=== PATIENT | female | born 1960 | race Caucasian/White ===

== ENCOUNTER 2025-02-11 14:39 | Emergency (ER) | payer MEDICAID, SELFPAY ==
[2025-02-11 14:40] VITALS: BMI 38.7
[2025-02-11 14:53] VITALS: BP 153/97; PULSE 82; RESP 20; TEMP 36.7; O2SAT 95
--- NOTE | 2025-02-11 14:55 | XR_ITS ---
Examination: Forearm, right, 2 views. Technique: Forearm, AP, lateral 2 views Date and time of exam: February 11, 2025, 1407 hours INDICATIONS: Injury to the arm today FINDINGS: No acute fracture No dislocation No elbow effusion IMPRESSION: No acute fracture
--- NOTE | 2025-02-11 14:57 | XR_ITS ---
EXAMINATION: PA lateral chest 2 views TECHNIQUE: Upright PA lateral chest 2 views Date and time: February 11, 2025, 1509 hours, comparison June 11, 2023 INDICATIONS: Chest pain beginning 2 weeks ago. FINDINGS: Normal heart size No lobar pneumonia or pulmonary edema The osseous structures are intact IMPRESSION: No pneumonia or pulmonary edema
--- NOTE | 2025-02-11 14:59 | EKG_ITS ---
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[id number] Requested By: Jordan Rice Order Number: [id number] Reading MD: Jordan Rice Measurements Intervals [place] Rate: 79 P: 37 OK: 144 QRS: -46 QRSD: 112 T: 9 QT: 370 QTc: 425 Interpretive Statements SINUS RHYTHM POSSIBLE LEFT ATRIAL ENLARGEMENT [-0.1mV P-WAVE IN V1/V2] LEFT ANTERIOR FASCICULAR BLOCK [QRS AXIS <= -45, QR IN I, RS IN II] POSSIBLE LEFT VENTRICULAR HYPERTROPHY [VOLTAGE CRITERIA PLUS LAE OR QRS WIDENING] POSSIBLE ANTERIOR MYOCARDIAL INFARCTION , PROBABLY OLD [30 ms Q WAVE IN V3/V4, OR R < 0.2 mV IN V4] Compared to ECG 06/11/2023 13:27:00 Left anterior fascicular block now present Myocardial infarct finding now present Intraventricular conduction delay no longer present ST (T wave) deviation no longer present /store/S0/[id number]/[id number].pdf
[2025-02-11 15:12] LABS: Basophils # (Auto) 0.1 Thou/mm3 (0.0-0.2); Basophils % (Auto) 1 % (0-2.5); Eosinophils # (Auto) 0.1 Thou/mm3 (0.0-0.5); Eosinophils % (Auto) 1 % (0-10); Hematocrit 43.3 % (36.0-46.0); Hemoglobin 14.1 g/dL (12.0-16.0); Immature Granulocytes Auto 0.05 Thou/mm3 (0.00-0.00); Lymphocytes # (Auto) 2.7 Thou/mm3 (1.0-4.8); Lymphocytes % (Auto) 32 % (10-50); Mean Corpuscular HGB Conc 32.6 g/dl (31.0-37.0); Mean Corpuscular Hemoglobin 24.6 pg (25.0-35.0); Mean Corpuscular Volume 76 fL (80-100); Monocytes # (Auto) 0.5 Thou/mm3 (0.0-0.8); Monocytes % (Auto) 6 % (0-12); Neutrophils # (Auto) 5.2 Thou/mm3 (1.8-7.7); Neutrophils % (Auto) 60 % (37-80); Nucleated Red Blood Cell # 0.00 Thou/mm3 (0.00-0.00); Nucleated Red Blood Cell % 0 /100 WBC (0); Platelet Count 239 Thou/mm3 (140-440); RDW Standard Deviation 39.1 fL (36.4-46.3); Red Blood Count 5.73 Miln/mm3 (4.00-5.20); White Blood Count 8.6 Thou/mm3 (3.6-11.0)
[2025-02-11 15:18] LABS: Beta Hydroxybutyrate 0.6 mmol/L (<0.6)
[2025-02-11 15:39] LABS: B-Type Natriuretic Peptide < 20 pg/mL (0-100)
[2025-02-11 15:43] LABS: Alanine Aminotransferase < 7 U/L (10-49); Albumin, Serum 5.1 gm/dL (3.4-4.8); Albumin/Globulin Ratio 2.0 (1.2-2.2); Alkaline Phosphatase 158 U/L (46-116); Anion Gap 12 (7-16); Aspartate Amino Transferase 13 U/L (0-34); BUN/Creatinine Ratio 12 Ratio (12-20); Bilirubin,Total 0.6 mg/dL (0.3-1.2); Blood Urea Nitrogen 11 mg/dL (9-23); Calcium 10.3 mg/dL (8.3-10.6); Calcium (Corrected) 10.3 mg/dL (8.5-10.1); Carbon Dioxide 23.9 mMol/L (20.0-31.0); Chloride 97 mMol/L (98-107); Creatinine (Component) 0.9 mg/dL (0.6-1.3); Estimated Creatinine Clearance 72.8 mL/min (>60); Globulin 2.5 gm/dL (2.3-3.5); Lipase 26 U/L (12-53); Osmolality,Calculated 287 (275-295); Potassium 3.8 mMol/L (3.4-5.1); Sodium 133 mMol/L (136-145); Total Protein 7.6 gm/dL (5.7-8.2); Troponin I < 0.002 ng/mL (0.0-0.045); eGFR > 60 See Note
[2025-02-11 15:46] LABS: Glucose 498 mg/dL (74-106)
[2025-02-11 15:55] VITALS: BP 164/112; PULSE 76; RESP 18; TEMP 36.6; O2SAT 96
[2025-02-11] MEDS: ONDANSETRON ODT 4 MG TABRAP PO (16:20)
[2025-02-11] MEDS: SODIUM CHLORIDE 0.9% 1000 ML 1,000 ML 999 ML IV (16:21)
--- NOTE | 2025-02-11 16:26 | EDNOTE_ITS ---
ED General RME/HPI General Chief complaint: General Adult/Misc Complain Stated complaint: HIGH FSBS, FOGGY HEAD Time Seen by Provider: 02/11/25 16:16 Arrival date/time: 02/11/25 14:39 64-year-old female patient with significant history of diabetes mellitus, came in for evaluation regarding elevated blood sugar. Patient has been having elevated blood sugar for the last few days, associated with a foggy head. Also complaining of right forearm pain after he got injured his something. Patient ran out of her Lantus for the last 7 days, she usually takes 70 units of Lantus in the morning. She denies any vomiting she denies any chest pain she denies any abdominal pain no fever no other complaints noted Related Data Previous Rx's ?Medication ?Instructions ?Recorded hydrochlorothiazide 25 mg tablet 25 mg PO QAM 30 days #30 tabs 11/21/21 insulin glargine 100 unit/mL (3 35 unit (0.35 mL) subc ut QPM #15 mL 11/21/21 mL) subcutaneous pen (Lantus Solostar U-100 Insulin) lisinopril 20 mg tablet 40 mg (2 x 20 mg) PO QDAY 30 days 11/21/21 #30 tabs metformin 1,000 mg tablet 1,000 mg PO BID 30 days #60 tabs 11/21/21 omeprazole 40 mg capsule,delayed 40 mg PO QDAY 30 days #30 caps 11/21/21 release pen needle, diabetic 32 gauge x #100 ea 11/21/21 5/32 (BD Violette 2nd Gen Pen Needle) ticagrelor 90 mg tablet (Brilinta) 90 tab PO BID 30 da ys #60 tabs 11/21/21 ibuprofen 600 mg tablet 600 mg PO Q8H PRN pain #30 t abs 11/25/21 insulin glargine 100 unit/mL (3 70 unit (0.7 mL) subcu t QAM #30 mL 02/11/25 mL) subcutaneous pen (Lantus Solostar U-100 Insulin) Allergies Allergy/AdvReac Type Severity Reaction Status Date / Time ampicillin Allergy Severe Rash Verified 02/11/25 14:43 bee venom protein (honey bee) Allergy Severe Swelling Verified 02/11/25 14:43 of Lip/Tongue/Throat latex Allergy Severe Rash Verified 02/11/25 14:43 morphine Allergy Severe Anaphylaxis Verified 02/11/25 14:43 Penicillins Allergy Severe Rash Verified 02/11/25 14:43 tetracycline Allergy Severe Rash Verified 02/11/25 14:43 codeine AdvReac Severe VOMITING,NA Verified 02/11/25 14:43 USEA Review of Systems Review of Systems Narrative Review of Systems: Review of system reviewed and within normal limits except mentioned in HPI ED Exam Narrative Physical exam: VITAL SIGNS: Reviewed. GENERAL APPEARANCE: Alert and interactive, follows commands, no acute distress, HEAD AND FACE: Non-traumatic. ENT: PERRL, pink conjunctivitis, eyelid no trauma, Mucous membrane moist. NECK: Supple, nontender, no nuchal rigidity. CHEST: No tenderness, no crepitus, no paradoxical movement, no retractions. LUNGS: Clear, well ventilated, symmetric, no rales, no wheezing, no ronchi, no stridor, good breath sounds bilaterally. HEART: Regular rate, regular rhythm, no murmur, no gallops. ABDOMEN: Soft, positive bowel sounds, nondistended, no guarding, nontender, no rebound, no masses, RECTAL: Deferred. GENITAL: Deferred. NEUROLOGICAL: Gross motor function intact sensory function intact, Appropriate for age. MUSCULOSKELETAL: low back nontender, full range of motion. EXTREMITIES: Right forearm tenderness, full range of motion. Distal neurovascular status intact SKIN: Color pink, dry, no rash, no lacerations, no abrasions, no contusions. LYMPHATICS: Deferred. Course Quality Measures none Orders Category Date Time Status EKG (ED ONLY) *Do not use* NOW Care 02/11/25 14:59 Completed Insert IV NOW Care 02/11/25 16:01 Active EKG (ED Only) Stat Exams 02/11/25 14:59 Draft XR chest 2V Stat Exams 02/11/25 14:57 Completed XR forearm RT 2V Stat Exams 02/11/25 14:55 Completed Acetone [Beta Hydroxybutyrate] Stat Lab 02/11/25 15:06 Completed B-Type Natriuretic Peptide Stat Lab 02/11/25 15:06 Completed CBC Stat Lab 02/11/25 15:06 Completed CMP [Comprehensive Metabolic Panel] Stat Lab 02/11/25 15:06 Completed Lipase Stat Lab 02/11/25 15:06 Completed Troponin I Stat Lab 02/11/25 15:06 Completed Urinalysis, C/S if Indicated Stat Lab 02/11/25 15:05 Ordered Insulin Regular Med 02/11/25 16:25 Discontinued 10 unit IV X1 ONE Ondansetron Odt [Zofran Odt] Med 02/11/25 15:04 Discontinued 4 mg PO X1 ONE Potassium Chloride [K-Dur] Med 02/11/25 16:26 Discontinued 40 meq PO X1 ONE Ringers Lactated 1000 ml [Lactated Ringers] 1,000 ml Med 02/11/25 16:25 Discontinued IV 999 mls/hr Sodium Chloride 0.9% 1000 ml [Ns] 1,000 ml Med 02/11/25 15:04 Discontinued IV 999 mls/hr Vital Signs Vital signs: Vital Signs Temperature 98.1 F 02/11/25 14:53 Pulse Rate 82 02/11/25 14:53 Respiratory Rate 20 02/11/25 14:53 Blood Pressure 153/97 H 02/11/25 14:53 Pulse Oximetry (%) 95 02/11/25 14:53 Oxygen Delivery Method Room Air 02/11/25 14:53 Discharge Plan Plan Patient Disposition: HOME (Self Care) Discharge Disposition comment: stable Prescriptions/Referrals Prescriptions/Med Rec: New insulin glargine [Lantus Solostar U-100 Insulin] 100 unit/mL (3 mL) insulin pen 70 unit subcut QAM Qty: 30 0RF No Action ibuprofen 600 mg tablet 600 mg PO Q8H PRN (Reason: pain) Qty: 30 0RF insulin glargine [Lantus Solostar U-100 Insulin] 100 unit/mL (3 mL) insulin pen 35 unit subcut QPM Qty: 15 0RF (DME) pen needle, diabetic [BD Violette 2nd Gen Pen Needle] 32 gauge x 5/32 needl e See Rx Instructions .Route Qty: 100 0RF Rx Instructions: As directed lisinopril 20 MG tablet 40 mg PO QDAY 30 Days Qty: 30 0RF omeprazole 40 mg Capsule,Delayed Release(Dr/Ec) 40 mg PO QDAY 30 Days Qty: 30 0RF metformin 1,000 mg Tablet 1,000 mg PO BID 30 Days Qty: 60 0RF hydrochlorothiazide 25 mg Tablet 25 mg PO QAM 30 Days Qty: 30 0RF Brilinta 90 mg tablet 90 tab PO BID 30 Days Qty: 60 0RF Referrals: No Primary/Family,Physician [Primary Care Provider] - In 1 week Problem List Clinical Impression: Right forearm pain, Hyperglycemia, Poor compliance with medication Patient/Caregiver Discharge Instructions Discharge Activity: activity as tolerated Education Materials: Understanding the Pain Response Additional Instructions: Thank you for the opportunity for serving you today. You are stable for discharged . You are advised to: Follow-up with your PCP in 1 to 2 days Return to ED for worsening of symptoms Increase oral fluids Take medication as prescribed Watch your intake of carbohydrates. Please check your blood sugar frequently. Print Language: Croatian Stand Alone Forms: [employer] Info., Patient Portal Info Letter PA/ALEIDA Supervising Physician PA/ALEIDA Supervising Physician: MD Emerald MDM Narrative MDM hospital course (for use when minimal MDM required): 02/11/25 14:39 64-year-old female patient with significant history of diabetes mellitus, came in for evaluation regarding elevated blood sugar. Patient has been having elevated blood sugar for the last few days, associated with a foggy head. Also complaining of right forearm pain after he got injured his something. Patient ran out of her Lantus for the last 7 days, she usually takes 70 units of Lantus in the morning. She denies any vomiting she denies any chest pain she denies any abdominal pain no fever no other complaints noted Patient's workup today is significant for blood sugar of 498 with no sign of diabetic ketoacidosis. Patient acetone was noted to be 0.6. Patient is not having any vomiting and no abdominal pain. Patient told me that her blood sugar is elevated due to not taking Lantus for 1 week. I prescribed her Lantus. Patient received regular insulin IV, and 2 L IV fluids. Prior to discharge patient blood sugar was noted to be 259. Stable for discharge home. Medication Administration(s) Medication Administration History Discontinued Medications Sodium Chloride (Ns) 1,000 mls @ 999 mls/hr IV .Q1H1M ONE Stop: 02/11/25 16:04 Last Infusion: 02/11/25 17:22 Dose: Infused Documented By: Admin: 02/11/25 16:21 Dose: 999 mls/hr Documented By: ISATU Lactated Ringer's (Lactated Ringers) 1,000 mls @ 999 mls/hr IV .Q1H1M ONE Stop: 02/11/25 17:25 Last Infusion: 02/11/25 17:51 Dose: Infused Documented By: Admin: 02/11/25 16:50 Dose: 999 mls/hr Documented By: ISATU Insulin Human Regular (Insulin Hum Regular 1 Unit/0.01 Ml (Per Unit)) 10 unit IV X1 ONE Stop: 02/11/25 16:26 Last Admin: 02/11/25 16:45 Dose: 10 unit Documented By: ISATU Co-signed By: MELVIN Ondansetron HCl (Ondansetron Odt 4 Mg Tabrap) 4 mg PO X1 ONE; Protocol Stop: 02/11/25 15:05 Last Admin: 02/11/25 16:20 Dose: 4 mg Documented By: ISATU Potassium Chloride (Potassium Chloride 20 Meq Tabcr) 40 meq PO X1 ONE Stop: 02/11/25 16:27 Last Admin: 02/11/25 16:50 Dose: 40 meq Documented By: ISATU Diagnosis Differential Diagnosis ED Complaint MDM: Hyperglycemia, DKA, right forearm pain Diagnoses ruled out and/or further discussions: Hyperglycemia, right forearm pain
[2025-02-11 16:33] VITALS: BP 146/98; PULSE 59; RESP 18; TEMP 36.9; O2SAT 95
[2025-02-11] MEDS: INSULIN HUM REGULAR 1 UNIT/0.01 ML (PER UNIT) 10 UNIT IV (16:45)
[2025-02-11] MEDS: RINGERS LACTATED 1000 ML 1,000 ML 999 ML IV (16:50)
[2025-02-11 18:28] VITALS: BP 146/98; PULSE 82; RESP 18; TEMP 36.7; O2SAT 98
[2025-02-11 18:32] VITALS: BP 149/98; PULSE 82; RESP 20; TEMP 36.7; O2SAT 98
== END 2025-02-11 18:35 | disposition home or self-care (01) ==
PROVIDERS: Physician Assistant; Emergency Provider Family Medicine
DX: E11.65 Type 2 diabetes mellitus with hyperglycemia (principal); Z91.148 Patient's other noncompliance with medication regimen for other reason; M79.631 Pain in right forearm
CPT/HCPCS: 36415; 71046; 73090; 80053; 81001; 82010; 83690; 83880; 84484; 84703; 85025; 93005; 96360; 99284; J1815; J7030; J7120; Q0162; A9270